=== PATIENT | male | born 1960 | race Caucasian/White ===

== ENCOUNTER 2020-07-03 09:27 | Observation (INO) ==
--- NOTE | 2020-07-03 10:14 | ERNOTE ---
Abdominal HPI - Narrative Date of Service: 07/03/20 - General Chief Complaint: Abdominal Pain Time Seen by Provider: 07/03/20 10:13 Source: patient, RN notes reviewed Exam Limitations: no limitations - Immun/Allergies/Home Medications Immunizatons: IMMUNIZATION HX Immunizations Up to Date Yes Allergies/Adverse Reactions: Allergies No Known Allergies Allergy (Unverified 07/03/20 09:42) Home Medications: HOME MEDICATIONS Ibuprofen [Advil Migraine] 200 mg PO DAILY PRN 07/03/20 [Last Taken Unknown] Mag Hydrox/Aluminum Hyd/Simeth [Maalox] 1 ml PO DAILY PRN 07/03/20 [Last Taken Unknown] - History of Present Illness Narrative: Ifeoma is a 60-year-old male who presents to the emergency department for abdominal pain. This began yesterday evening. He reports that his pain is located across his lower abdomen. He has had 2 bowel movements this morning, the first of which was formed and the second was more soft. He denies any nausea or vomiting. He has had coffee to drink this morning which did not make his pain worse. He reports that his pain is worse with ambulation. He has no prior history of abdominal surgeries but did have a colonoscopy a few years ago. This was apparently without significant findings. He denies any fevers or chills. He had not been eating anything unusual or had any sick contacts prior to the onset of his symptoms. He reports taking Maalox this morning without any improvement. Date (Duration): 07/02/20 Timing: constant Quality: moderate, aching Activities at Onset: none Modifying Factors - (Improves): Absent: defecating, rest Modifying Factors - (Worsens): Present: breathing, movement, exercise. Absent: defecating, rest, lying down Prior Abdominal Problems: Present: none Prior Treatment: Absent: recently seen Review of Systems - Review of Systems Constitutional: Absent: recent illness, fever, chills EYE: Present: no symptoms reported ENT: Absent: nose congestion, sore throat Respiratory: Absent: shortness of breath, cough Cardiology: Absent: chest pain, syncope Gastrointestinal/Abdominal: Present: abdominal pain. Absent: nausea, vomiting, diarrhea, constipation Genitourinary: Absent: dysuria, hematuria Musculoskeletal: Absent: back pain, muscle pain Skin: Absent: rash, lesions Neurological: Absent: headache, dizziness/light-headedness Endocrine: Present: no symptoms reported Hematologic/Lymphatic: Absent: easy bruising, easy bleeding Psych: Present: no symptoms reported Medical History (Last Reviewed 07/03/20 @ 14:03 by Jazmyne Das NP) No pertinent family history No pertinent past medical history Surgical History: Surgical History (Last Reviewed 07/03/20 @ 14:03 by Jazmyne Das NP) H/O removal of cyst Family History: Family History (Last Updated 07/03/20 @ 16:49 by Derek Hollis MD) Other Family history non-contributory Social History: (Last Reviewed 07/03/20 @ 14:03 by Jazmyne Das NP) Tobacco: Smoking Status: Former smoker Alcohol: alcohol intake: current alcohol intake frequency: holiday/special occasion Substance Use: substance use type: does not use Physical Exam - Physical Exam General Appearance: Present: wd/wn, alert, other - In no acute distress but does appear uncomfortable Head Exam: Present: normal inspection Eye Exam: Normal inspection: bilateral Neck: Present: normal inspection, nontender, supple, full range of motion Respiratory: Present: no respiratory distress, normal breath sounds, no accessory muscle use, lungs clear Cardiovascular/Chest: Present: regular rate, rhythm, no murmur, normal peripheral pulses Gastrointestinal/Abdominal: Present: normal bowel sounds, nondistended, soft, tenderness - Throughout lower abdomen, worse on right, guarding - RLQ. Absent: mass Back Exam: Present: normal inspection, normal range of motion, no CVA tenderness Extremity Exam: Present: normal inspection, normal range of motion, no edema Neurological Exam: Present: alert, oriented, normal mood/affect, no motor/sensory deficits Skin Exam: Present: normal color, warm/dry Progress - Results and Orders Patient's Lab Results:: I have reviewed the patient's lab results. - Vital Signs Patient's Vital Signs:: I have reviewed the patient's vital signs. Vital Signs: Vital Signs 07/03/20 09:37 Temperature 37.1 C Pulse Rate 85 Respiratory Rate 18 Blood Pressure 160/90 H O2 Sat by Pulse Oximetry 96 - CT/Ultrasound CT/Ultrasound Narrative: ENHANCED CT SCAN OF THE ABDOMEN AND ENHANCED CT SCAN OF THE PELVIS. COMPARISON: NONE Technique: Initially, multiple axial images were obtained through the abdomen during the portal venous phase of enhancement. Delayed images were obtained through the abdomen and pelvis. Coronal reconstructions were obtained. Oral contrast was utilized. Individualized dose optimization technique was used for the performed procedure including automated exposure control, adjustment of the mA and/or kV according to patient size and/or the iterative reconstruction technique. Findings: There is some linear density in both lung bases can't reflects atelectasis or scar. Otherwise the lung bases are clear. The liver is homogeneous in appearance and I do not see evidence for a focal defect or intrahepatic duct dilatation. A gallbladder is in place and I do not see evidence for calcified gallstones. The spleen is of normal size and is homogenous in appearance. The adrenal glands are within normal limits. The pancreas is with in normal limits. The abdominal aorta is of normal caliber. I do not see evidence for retroperitoneal adenopathy on this study. The right and left renal parenchyma is normal in appearance. The kidneys demonstrate bilateral symmetric excretion of contrast and the ureters are of normal caliber on delayed images. There is a small hiatal hernia. There is mild thickening of the visualized distal esophagus, which may reflect an element of esophagitis. The stomach is partially distended and is grossly normal appearance. The small bowel is of normal caliber. The appendix is dilated measuring 11.5 mm in diameter with mild periappendiceal inflammation. I do not see evidence for a focal fluid collection. The colon is suboptimally evaluated, but I'm not convinced of a definable colon lesion. CT scan of pelvis: The urinary bladder is normal in appearance. The prostate is not enlarged. I do not see evidence for free fluid, mass, or adenopathy within the pelvis. Bone windows demonstrate no definable acute osseous abnormality. IMPRESSION: 1. PROMINENT APPENDIX WITH MILD PERIAPPENDICEAL INFLAMMATION AND NO DEFINABLE FLUID COLLECTION OR ABSCESS; THIS SUGGESTS AN EARLY ACUTE APPENDICITIS. 2. SMALL HIATAL HERNIA WITH QUESTIONABLE MILD ESOPHAGITIS INVOLVING THE DISTAL ESOPHAGUS. Electronically signed by Regnio Garner M.D.. - Progress/Reassessment Chief Complaint: Abdominal Pain Progress:: Unchanged Progress Note-Subjective: 07/03/20 14:37 CT scan shows an early appendicitis. Dr. Hollis was contacted and will see the patient in the ED, planning to take patient to OR later this afternoon. Discussed with patient, he is in agreement with plan. He reports that his pain is currently mild as long as he sits still. In-house COVID test ordered. 07/03/20 16:53 Dr. Hollis and anesthesia here to see patient. Will be going to OR. Negative COVID-19. Departure Clinical Impression: Acute appendicitis Qualifiers: Acute appendicitis type: unspecified acute appendicitis type Qualified Code(s): K35.80 - Unspecified acute appendicitis - Departure Disposition: Still a patient Condition: Stable
[2020-07-03] MEDS ORDERED: KETOROLAC TROMETHAMINE 30 MG/ML VIAL IV ONE (10:54)
[2020-07-03] MEDS ORDERED: NORMAL SALINE 1,000 ML IV ONE (10:54)
[2020-07-03] MEDS ORDERED: ONDANSETRON HCL/PF 2 MG/ML VIAL IV ONE (10:54)
[2020-07-03 10:58] LABS: Urine Bilirubin Negative (NEGATIVE); Urine Blood Negative /ul (NEGATIVE); Urine Ketone 15 mg/dL (NEGATIVE); Urine Nitrite Negative (NEGATIVE); Urine Protein Negative (NEGATIVE); Urine Specific Gravity 1.025 SP.GR. (1.005-1.030); Urine Urobilinogen Normal (NORMAL)
[2020-07-03 11:07] LABS: Anion Gap 13.2 mmol/L (6.8-13.8); BUN/Creatinine Ratio 14.5 (9.0-21.6); Calcium * 9.9 mg/dL (7.9-10.9); Carbon Dioxide 26.7 mmol/L (24-32.6); Potassium 3.9 mmol/L (3.4-4.6); Total Protein 8.6 gm/dL (6.2-8.2)
[2020-07-03 11:08] LABS: Albumin * 4.2 gm/dl (3.4-5.0); Bilirubin, Total 0.8 mg/dL (0.0-1.1); Ca. Corrected For Albumin 9.4 mg/dL (8.4-10.2)
[2020-07-03 11:10] LABS: Hematocrit 52.1 % (42.0-52.0); Hemoglobin 17.3 gm/dL (13.5-18.0); Mean Cell Volume 92.4 fl (78-100); Mean Corpuscular Hemoglobin 30.7 pg (27-31); Mean Corpuscular Hgb Conc 33.2 g/dl (32-36); Neutrophil # 14.4 K/mm3 (1.3-6.0); Neutrophil % 87.8 % (42-75.0); Platelet Count 207 K/mm3 (150-450); Red Blood Count 5.64 M/mm3 (4.7-6.0); White Blood Count 16.4 K/mm3 (4.0-10.5)
[2020-07-03 11:19] LABS: Urine Appearance Clear (CLEAR); Urine Bacteria None Seen; Urine Color Yellow; Urine RBC 0-5 /hpf (0-5); Urine WBC 0-5 /hpf (0-5)
[2020-07-03] MEDS ORDERED: DIATRIZOATE MEGLUMINE, SODIUM 30 ML BTL PO ONE (11:21)
[2020-07-03] MEDS ORDERED: LIDOCAINE HCL 20 ML VIAL ONE (15:53)
[2020-07-03] MEDS ORDERED: fentaNYL CITRATE/PF 50 MCG/ML AMPUL ONE (15:54)
[2020-07-03] MEDS ORDERED: PROPOFOL VIAL IV ONE (15:54)
[2020-07-03] MEDS ORDERED: ONDANSETRON HCL/PF 2 MG/ML VIAL ONE (15:54)
[2020-07-03] MEDS ORDERED: GLYCOPYRROLATE 0.2 MG/ML VIAL ONE (15:54)
[2020-07-03] MEDS ORDERED: SUCCINYLCHOLINE CHLORIDE 20 MG/ML VIAL ONE (15:54)
[2020-07-03] MEDS ORDERED: ROCURONIUM BROMIDE 10 MG/ML VIAL ONE (15:54)
[2020-07-03] MEDS ORDERED: NEOSTIGMINE METHYLSULFATE 1 MG/ML VIAL ONE (15:54)
[2020-07-03] MEDS ORDERED: ISOPROPYL ALCOHOL 480 APPL BTL MC ONE (16:00)
[2020-07-03] MEDS ORDERED: BUPIVACAINE HCL/EPINEPHRINE 50 ML VIAL ONE (16:00)
[2020-07-03] MEDS ORDERED: MUPIROCIN 22 APPL TUBE TP ONE ×2 (16:00→18:13)
[2020-07-03] MEDS ORDERED: oxyCODONE HCL/ACETAMINOPHEN 1 TAB TABLET PO PRN (16:57)
--- NOTE | 2020-07-03 16:57 | HP ---
Chief Complaint - Chief Complaint Date of Service: 07/03/20 Time of Service: 16:47 Chief Complaint: abdominal pain History of Present Illness: Started with abdominal pain yesterday evening. Continued and became worse today. He was evaluateed in ER and found to have RLQ tenderness, elevated WBC and CT scan evidence of acute uncomplicated appendicitis. Has moved his bowels today. Had a negative colonoscopy and takes Miralax. Medical History (Last Reviewed 07/03/20 @ 16:49 by Derek Hollis MD) No pertinent family history No pertinent past medical history Surgical History: Surgical History (Last Reviewed 07/03/20 @ 16:49 by Derek Hollis MD) H/O removal of cyst Family History: Family History (Last Updated 07/03/20 @ 16:49 by Derek Hollis MD) Other Family history non-contributory Social History: (Last Reviewed 07/03/20 @ 16:49 by Derek Hollis MD) Tobacco: Smoking Status: Former smoker Alcohol: alcohol intake: current alcohol intake frequency: holiday/special occasion Substance Use: substance use type: does not use Review Of Systems (GEN) - Review of Systems Generalized/Overall Review: Absent: Chills, Fever EENTM: Present: No Symptoms Reported Respiratory: Present: No Symptoms Reported Cardiac: Absent: Chest Pain, Palpitations Abdominal: Present: Abdominal Pain. Absent: Nausea, Vomiting Genitourinary: Present: No Symptoms Reported, Nocturia - usually once Musculoskeletal: Present: No Symptoms Reported Neurological: Present: No Symptoms Reported Skin: Present: No Symptoms Reported Immunizations: IMMUNIZATION HX Immunizations Up to Date Yes Allergies/Adverse Reactions: Allergies Allergy/AdvReac Type Severity Reaction Status Date / Time No Known Allergies Allergy Unverified 07/03/20 09:42 Home Medications: HOME MEDICATIONS Ibuprofen [Advil Migraine] 200 mg PO DAILY PRN 07/03/20 [Last Taken Unknown] Mag Hydrox/Aluminum Hyd/Simeth [Maalox] 1 ml PO DAILY PRN 07/03/20 [Last Taken Unknown] Exam - Exam Vital Signs: Vital Signs - Last Taken Temp 37.8 C 07/03/20 16:27 Pulse 108 H 07/03/20 16:27 Resp 16 07/03/20 16:27 BP 139/87 07/03/20 16:27 Pulse Ox 95 07/03/20 16:27 Constitutional: Present: Alert, Oriented x3, Cooperative, Well developed, Well nourished, Mild distress ENT Exam: Present: normal ENT inspection, other - Mallampati 2 airway Eye Exam: bilateral eye: normal inspection Neck: Present: full range of motion, supple, normal inspection Back Exam: Present: normal inspection Respiratory: Present: lungs clear Cardiovascular/Chest: Present: regular rate, rhythm, no edema, no murmur, tachycardia Abdomen: Present: other - mild distention, soft, VERY tender RLQ with rebound /Rectal: Present: Exam deferred Extremity: Present: normal range of motion, no pedal edema, no calf tenderness, normal capillary refill Skin Exam: Present: normal color Neurologic: Present: die finisher II-XII nml as tested, normal cerebellar test, alert, normal mood/affect, oriented x 3 Appearance: Present: appropriate appearance, appropriate insight Eye contact: Present: cooperative, good eye contact, normal speech Thoughts: Present: normal thought pattern Diagnostic Studies: Abnormal Lab Results 07/03/20 07/03/20 Range/Units 10:48 10:48 WBC 16.4 H (4.0-10.5) K/mm3 Hct 52.1 H (42.0-52.0) % Immature Gran # (Auto) 0.06 H (0.000-0.0310) K/mm3 Neutrophils % 87.8 H (42-75.0) % Lymphocytes % 6.4 L (20-51) % Neutrophils # 14.4 H (1.3-6.0) K/mm3 Lymphocytes # 1.05 L (1.5-3.5) k/mm3 Random Glucose 116 H (70-110) mg/dL C-Reactive Prot, Quant 1.0 H (0.0-0.9) mg/dL Total Protein 8.6 H (6.2-8.2) gm/dL Lipase 53 L (73-393) U/L Laboratory Results WBC 16.4 K/mm3 (4.0-10.5) H 07/03/20 10:48 RBC 5.64 M/mm3 (4.7-6.0) 07/03/20 10:48 Hgb 17.3 gm/dL (13.5-18.0) 07/03/20 10:48 Hct 52.1 % (42.0-52.0) H 07/03/20 10:48 MCV 92.4 fl (78-100) 07/03/20 10:48 MCH 30.7 pg (27-31) 07/03/20 10:48 MCHC 33.2 g/dl (32-36) 07/03/20 10:48 RDW 12.0 % (11.5-14.0) 07/03/20 10:48 Plt Count 207 K/mm3 (150-450) 07/03/20 10:48 MPV 10.0 fl (8-11.3) 07/03/20 10:48 Immature Gran % (Auto) 0.40 % (0.001-0.429) 07/03/20 10:48 Immature Gran # (Auto) 0.06 K/mm3 (0.000-0.0310) H 07/03/20 10:48 Neutrophils % 87.8 % (42-75.0) H 07/03/20 10:48 Lymphocytes % 6.4 % (20-51) L 07/03/20 10:48 Monocytes % 5.2 % (0.0-9) 07/03/20 10:48 Eosinophils % 0.0 % (0.0-3.0) 07/03/20 10:48 Basophils % 0.2 % (0.0-1.0) 07/03/20 10:48 Nucleated RBC % 0.0 k/mm3 (0-1) 07/03/20 10:48 Neutrophils # 14.4 K/mm3 (1.3-6.0) H 07/03/20 10:48 Lymphocytes # 1.05 k/mm3 (1.5-3.5) L 07/03/20 10:48 Monocytes # 0.9 k/mm3 (0.0-1.0) 07/03/20 10:48 Eosinophils # 0.0 k/mm3 (0.0-0.7) 07/03/20 10:48 Absolute Basophils 0.0 k/mm3 (0.0-0.1) 07/03/20 10:48 Sodium 136 mmol/L (132-142) 07/03/20 10:48 Plasma Sodium 136 mmol/L (130-142) 07/03/20 10:48 Potassium 3.9 mmol/L (3.4-4.6) 07/03/20 10:48 Chloride 100 mmol/L (97-106) 07/03/20 10:48 Carbon Dioxide 26.7 mmol/L (24-32.6) 07/03/20 10:48 Anion Gap 13.2 mmol/L (6.8-13.8) 07/03/20 10:48 BUN 17 mg/dL (6-23) 07/03/20 10:48 Creatinine 1.17 mg/dL (0.4-1.4) 07/03/20 10:48 Est GFR (Non-Af Amer) 67 mL/min (60-130) 07/03/20 10:48 BUN/Creatinine Ratio 14.5 (9.0-21.6) 07/03/20 10:48 Random Glucose 116 mg/dL (70-110) H 07/03/20 10:48 Calcium 9.9 mg/dL (7.9-10.9) 07/03/20 10:48 Calcium Adj for Albumin 9.4 mg/dL (8.4-10.2) 07/03/20 10:48 Total Bilirubin 0.8 mg/dL (0.0-1.1) 07/03/20 10:48 AST 22 U/L (0-48) 07/03/20 10:48 ALT 31 U/L (19-67) 07/03/20 10:48 Alkaline Phosphatase 75 U/L (50-170) 07/03/20 10:48 C-Reactive Prot, Quant 1.0 mg/dL (0.0-0.9) H 07/03/20 10:48 Total Protein 8.6 gm/dL (6.2-8.2) H 07/03/20 10:48 Albumin 4.2 gm/dl (3.4-5.0) 07/03/20 10:48 Lipase 53 U/L (73-393) L 07/03/20 10:48 Urine Color Yellow 07/03/20 10:34 Urine Appearance Clear (CLEAR) 07/03/20 10:34 Urine pH 6.0 pH (5.0-7.0) 07/03/20 10:34 Ur Specific [place] 1.025 SP.GR. (1.005-1.030) 07/03/20 10:34 Urine Protein Negative mg/dL (NEGATIVE) 07/03/20 10:34 Urine Glucose (UA) Negative mg/dL (NEGATIVE) 07/03/20 10:34 Urine Ketones 15 mg/dL (NEGATIVE) 07/03/20 10:34 Urine Blood Negative /ul (NEGATIVE) 07/03/20 10:34 Urine Nitrate Negative (NEGATIVE) 07/03/20 10:34 Urine Bilirubin Negative mg/dl (NEGATIVE) 07/03/20 10:34 Urine Urobilinogen Normal EU/dl (NORMAL) 07/03/20 10:34 Ur Leukocyte Esterase Negative /ul (NEGATIVE) 07/03/20 10:34 Urine RBC 0-5 /hpf (0-5) 07/03/20 10:34 Urine WBC 0-5 /hpf (0-5) 07/03/20 10:34 Ur Epithelial Cells None seen /hpf (0-5) 07/03/20 10:34 Urine Bacteria None seen (NONE) 07/03/20 10:34 Urine Culture Comments No culture indicated 07/03/20 10:34 SARS-CoV-2 (PCR) Not detected (NotDetected) 07/03/20 14:50 CT shows acute uncomplicated appendicitis Assessment/Plan - Assessment/Plan (1) Acute appendicitis Assessment: Explained appendicitis, and appendectomy (laparoscopic or open). His was present on speaker phone as well. The risks and possible complications of surgery explained along with the expected post-op course. After an interactive discussion his questions were answered to his apparent satisfaction and informed consent for appendectomy obtained. SCD's, IV Mefoxin, chlorhexidine wipes Problem: Acute Qualifiers: Acute appendicitis type: unspecified acute appendicitis type Qualified Code(s): K35.80 - Unspecified acute appendicitis
--- NOTE | 2020-07-03 16:59 | ANES ---
Anesthesia Pre Procedure Eval Vitals/Labs: Last Vital Signs Temp 37.8 C 07/03/20 16:27 Pulse 114 H 07/03/20 16:44 Resp 16 07/03/20 16:44 BP 139/92 H 07/03/20 16:44 Pulse Ox 94 07/03/20 16:44 HOME MEDICATIONS Ibuprofen [Advil Migraine] 200 mg PO DAILY PRN 07/03/20 [Last Taken Unknown] Mag Hydrox/Aluminum Hyd/Simeth [Maalox] 1 ml PO DAILY PRN 07/03/20 [Last Taken Unknown] Allergies/Adverse Reactions: Allergies Allergy/AdvReac Type Severity Reaction Status Date / Time No Known Allergies Allergy Unverified 07/03/20 09:42 - Planned Procedure Planned Procedure: Lap Appy Medication List Reviewed:: Yes Allergies Verified: Yes Medical History (Last Reviewed 07/03/20 @ 16:58 by Ceasar Lockett CRNA) No pertinent family history No pertinent past medical history Surgical History (Last Reviewed 07/03/20 @ 16:58 by Ceasar Lockett CRNA) H/O removal of cyst Family History (Last Reviewed 07/03/20 @ 16:58 by Ceasar Lockett CRNA) Other Family history non-contributory - Family Anesthesia History Family History:: no untoward family reactions to anesthesia, no familial bleeding tendencies, no family history of clotting disorders, no family history of premature - Airway/Neck/Teeth Within Normal Limits:: Yes Teeth Condition: intact Mallampatti Score: 2 Thyromental (T-M) distance: > 6 cm Mandibulo Hyoid distance: > 3 cm - Respiratory Respiratory Physical: lungs clear Smoking Status: Never smoker Discussed smoking cessation including day of surgery: No Sleep Apnea currently treated: No Sleep Apnea by current assessment: No Discussed Risks/Treatment of SHEILA: No - Cardiovascular Tolerate Activity: Fair Heart Sounds: S1 & S2, Regular - Anesthesia Assessment and Plan ASA Class: PS, II, E Anesthesia Type Plan: General ET
[2020-07-03] MEDS ORDERED: CEFOXITIN SODIUM 2 GM in DEXTROSE 5 % IN WATER 100 ML IV ONE ×2 (17:02)
[2020-07-03] MEDS: RINGER'S SOLUTION,LACTATED 1,000 ML IV PRN ×2 (17:05→19:29)
[2020-07-03] MEDS ORDERED: BUPIVACAINE HCL/EPINEPHRINE 50 ML VIAL IJ ONE (18:00)
[2020-07-03] MEDS ORDERED: ONDANSETRON HCL/PF 2 MG/ML VIAL IV PRN (18:37)
--- NOTE | 2020-07-03 18:39 | ANES ---
Post Anesthesia Discharge - Transfer of Care Transfer of Care handoff given to nurse: Yes - Discharge from PACU Discharge from PACU when meets criteria: Yes - Discharge to ASU Discharge to ASU-no complications/pt stable: Yes
[2020-07-03] MEDS ORDERED: PANTOPRAZOLE SODIUM 40 MG/100 ML PIGGYBACK IV ONE (18:45)
[2020-07-03] MEDS ORDERED: PANTOPRAZOLE SODIUM 40 MG in NORMAL SALINE 100 ML IV SCH (18:45)
--- NOTE | 2020-07-03 19:08 | OR ---
Operative Report - Dictated Report Narrative: Date of operation 07/03/2020 Preoperative diagnosis: Acute appendicitis Postoperative diagnosis: Acute appendicitis with rupture Operation: Laparoscopic appendectomy Surgeon: JOHNATHAN Hollis MD Anesthesia: Gen. alicia Lockett CRNA Indications for procedure: The patient is a 60-year-old male who presented to the emergency room with abdominal pain that began yesterday afternoon. On evaluation he was found to have right lower quadrant tenderness, elevated WBC, and CT scan suggesting early acute appendicitis. Findings: Acute appendicitis with rupture and peritonitis Narrative of procedure: The patient was identified preoperatively, and prior to the administration of anesthetic a multidisciplinary timeout was observed. The patient was placed supine, SCDs were applied, and rapid sequence endotracheal intubation performed. General endotracheal anesthetic was administered. The patient's abdomen was prepped with Betadine solution, and a generous operating field outlined with 4 sterile towels. The remainder the patient was covered with a sterile disposable drape. A transverse infraumbilical skin incision was made, and dissection was carried along the umbilical stalk until the fascia of the linea alba was encountered. This was incised. The peritoneum was elevated and incised to allow entry into the abdomen under direct vision. A Hussan cannula was placed and the abdomen insufflated with CO2. The laparoscopic camera was introduced and the abdomen briefly explored. Those portions of the liver stomach and omentum visualized appeared normal. Redirecting the camera inferiorly there was marked erythema of the distal small bowel and pooled green liquid in the right side of the pelvis. The appendix was not immediately visible Next under direct vision, 2 additional working ports were inserted through separate skin incisions, one in the suprapubic area one in the left lower quadrant. The fluid in the pelvis was carefully suctioned clean. The cecum was identified and elevated revealing the tip of an acutely inflamed appendix. The tip of the appendix did appear to have perforated. The appendix was elevated and found to be amenable to a single application of a laparoscopic JOYCE stapling device. The base of the appendix and mesoappendix were then transected with a laparoscopic JOYCE stapling device. The stump of the appendix was seen to be hemostatic and gas and liquid tight. The mesoappendix was seen to be hemostatic. The appendix was placed in an Endobag and parked in the right lower quadrant. The right lower quadrant was irrigated and suctioned clean. The pelvis was carefully suctioned clean. The small working ports were then withdrawn under direct vision to ensure entry site hemostasis. The appendix was removed in conjunction with the Hussan cannula. The pneumoperitoneum was allowed to escape, and after receiving a correct sponge needle and instrument count attention was turned to closing the abdomen. The fascia and peritoneum at the umbilicus were approximated with interrupted sutures of #1 Vicryl. Betadine was allowed to fruit grading supervisor the infraumbilical wound while the port skin incisions were approximated with interrupted vertical mattress sutures of 4-0 nylon. The infraumbilical incision was blotted dry and cleaned with saline. The subcutaneous tissue was approximated with a single pursestring suture of 3-0 chromic. The infraumbilical skin incision was closed with interrupted vertical mattress sutures of 4-0 nylon. The operative sites were washed and dried. Dressings of Bactroban ointment and large Band-Aids were applied to the small port sites. The umbilical incision was dressed with Bactroban ointment, 2 x 2, large Band- Aid, and Medipore tape. The operative procedure was terminated at this point. There was no measurable blood loss. 0.5% Marcaine with epinephrine was used for local anesthetic infiltration area the appendix was submitted to pathology. The patient tolerated the anesthetic and procedure well without complication and was transferred to the recovery room awake, extubated, and in stable condition. The patient will be placed in an observation bed for additional antibiotics Reviewed and electronically signed
[2020-07-03] MEDS: CEFOXITIN SODIUM 1 GM in DEXTROSE 5 % IN WATER 100 ML IV SCH ×2 (23:15)
[2020-07-04] MEDS: RINGER'S SOLUTION,LACTATED 1,000 ML IV PRN (04:04)
[2020-07-04] MEDS: CEFOXITIN SODIUM 1 GM in DEXTROSE 5 % IN WATER 100 ML IV SCH ×4 (05:52→11:26)
[2020-07-04 06:23] LABS: Hematocrit 39.2 % (42.0-52.0); Mean Cell Volume 93.3 fl (78-100); Mean Corpuscular Hgb Conc 33.2 g/dl (32-36); Mean Platelet Volume 9.6 fl (8-11.3); Neutrophil # 9.8 K/mm3 (1.3-6.0); Neutrophil % 83.3 % (42-75.0); Platelet Count 156 K/mm3 (150-450); Red Cell Distribution Width 12.6 % (11.5-14.0); White Blood Count 11.7 K/mm3 (4.0-10.5)
--- NOTE | 2020-07-04 11:00 | DS ---
(1) Acute appendicitis Problem: Acute Qualifiers: Acute appendicitis type: with generalized peritonitis Appendicitis gangrene presence: unspecified whether gangrene present Appendicitis perforation presence: with perforation Appendicitis abscess presence: without abscess Qualified Code(s): K35.20 - Acute appendicitis with generalized peritonitis, without abscess Date of Discharge:: 07/04/20 Hospital Course: He underwent laparoscopic appendectomy for acute appendicitis. There was evidence of rupture and fluid in the pelvis but no estela abscess. Tolerated the procedure well. His vital signs remained stable. He had minimal discomfort (this was incisional in nature), and his original presenting pain was resolved. He was able to ambulate without assistance and tolerated a regular diet. He received 1 preop and 3 doses of postoperative Mefoxin IV. He will be discharged home with instructions not to lift and not to drive. He may advance his diet as tolerated. He is to continue MiraLAX. A prescription for Percocet 5/325 mg #30 was transmitted electronically. A prescription for Augmentin [id number] #14 was transmitted electronically. He is to call the office for an appointment on 07/13/2020. Work excuse was given through that date Procedures Performed: see notes below - Laparoscopic appendectomy Results and Findings: Lab Pending Results 07/03/20 10:34: Urine Color Yellow, Urine Appearance Clear, Urine pH 6.0, Ur Specific [place] 1.025, Urine Protein Negative, Urine Glucose (UA) Negative, Urine Ketones 15, Urine Blood Negative, Urine Nitrate Negative, Urine Bilirubin Negative, Urine Urobilinogen Normal, Ur Leukocyte Esterase Negative, Urine RBC 0-5, Urine WBC 0-5, Ur Epithelial Cells None seen, Urine Bacteria None seen, Urine Culture Comments No culture indicated 07/03/20 10:48: WBC 16.4 H, RBC 5.64, Hgb 17.3, Hct 52.1 H, MCV 92.4, MCH 30.7, MCHC 33.2, RDW 12.0, Plt Count 207, MPV 10.0, Immature Gran % (Auto) 0.40, Immature Gran # (Auto) 0.06 H, Neutrophils % 87.8 H, Lymphocytes % 6.4 L, Monocytes % 5.2, Eosinophils % 0.0, Basophils % 0.2, Nucleated RBC % 0.0, Neutrophils # 14.4 H, Lymphocytes # 1.05 L, Monocytes # 0.9, Eosinophils # 0.0, Absolute Basophils 0.0 07/03/20 10:48: Sodium 136, Plasma Sodium 136, Potassium 3.9, Chloride 100, Carbon Dioxide 26.7, Anion Gap 13.2, BUN 17, Creatinine 1.17, Est GFR (Non-Af Amer) 67, BUN/Creatinine Ratio 14.5, Random Glucose 116 H, Calcium 9.9, Calcium Adj for Albumin 9.4, Total Bilirubin 0.8, AST 22, ALT 31, Alkaline Phosphatase 75, C-Reactive Prot, Quant 1.0 H, Total Protein 8.6 H, Albumin 4.2, Lipase 53 L 07/03/20 14:50: SARS-CoV-2 (PCR) Not detected 07/04/20 06:10: WBC 11.7 H D, RBC 4.20 L, Hgb 13.0 L, Hct 39.2 L, MCV 93.3, MCH 31.0, MCHC 33.2, RDW 12.6, Plt Count 156, MPV 9.6, Immature Gran % (Auto) 0.30, Immature Gran # (Auto) 0.04 H, Neutrophils % 83.3 H, Lymphocytes % 11.9 L, Monocytes % 4.2, Eosinophils % 0.1, Basophils % 0.2, Nucleated RBC % 0.0, Neutrophils # 9.8 H, Lymphocytes # 1.40 L, Monocytes # 0.5, Eosinophils # 0.0, Absolute Basophils 0.0 Discharge Location: Home Disposition: Home self-care Condition: Good Discharge Activity: Activity as tolerated, No Lifting Discharge Diet: General/regular food, Other - He is to continue his MiraLAX Problem Oriented Discharge Instructions to Patient/Family: Laparoscopic Appendectomy, Adult, Care After, [id number] Additional Patient Instructions (free text): Please review discharge instructions. We will call Dr. Hollis's office on Monday with follow-up appointment on July 13 and let you know the time. Please call Dr. Hollis's office with any questions or concerns, . Complete Home Medications List: Complete Home Medication List: Ibuprofen [Advil Migraine] 200 mg PO DAILY PRN 07/03/20 Mag Hydrox/Aluminum Hyd/Simeth [Maalox] 1 ml PO DAILY PRN 07/03/20 oxyCODONE HCL/ACETAMINOPHEN [Percocet 5 MG/325 MG] 1 - 2 tab PO Q4H PRN #30 tab 07/03/20 Amoxicillin/Potassium Clav [Amox-Clav 875-125 mg Tablet] 1 ea PO BID 7 Days #14 tab 07/04/20 Forms: Patient Portal Registration
[2020-07-04 11:49] VITALS: BP 143/90
== END 2020-07-04 12:15 | disposition home or self-care (01) ==
LOC: ER 09:27 → AMB 16:47 → MS 16:47 → AMB 17:00
PROVIDERS: ADMIT Surgery; ATTEND Surgery
DX: K35.20 Acute appendicitis with generalized peritonitis, without abscess